=== PATIENT | female | born 1980 | race Caucasian/White ===

== ENCOUNTER 2017-06-26 22:26 | Emergency (ER) | payer BC ==
[~2017-06-26] VITALS: Ht 162.6 cm; Wt 85.8 kg
[~2017-06-26 22:26] MED LIST: ATIVAN0.5 MG PO; AURALGAN14.8 ML BOTH EARS; CARAFATE100 MG/ML PO; CEFDINIR300 MG PO; CELECOXIB200 MG PO; CIPRO HC OTIC S10 ML BOTH EARS; COUMADIN1 MG PO; ENDOCET 5-3251 EACH PO; FLEXERIL10 MG PO; HYDROCODON-ACE1 EAC7 PO; IBUPROFEN600 MG PO; INDOCIN25 MG PO; INDOCIN50 MG PO; IRON325 M1 PO; LIDOCAINE20 MG/1 M5 PO; NAPROSYN500 MG PO; NORCO 10/3251 TABLET PO; NORCO 5/3251 TABLET PO; SENNA-TIME S T1 EACH PO; ULTRAM50 MG PO; VICODIN 5-3001 EACH PO
[2017-06-26 23:23] LABS: APPEARANCE CLOUDY ((CLEAR)); BILIRUBIN NEGATIVE; BLOOD MODERATE; COLOR YELLOW ((YELLOW)); GLUCOSE (STRIP) NEGATIVE; KETONES NEGATIVE; LEUKOCYTES LARGE; NITRITE NEGATIVE; PROTEIN (STRIP) 100; SPECIFIC GRAVITY 1.025 (1.000-1.030); UROBILINOGEN 0.2 MG/DL (0.2-1.0)
[2017-06-26 23:36] LABS: EPITHELIAL CELLS 1+ /HPF; WHITE BLOOD CELLS TNTC /HPF (0-5)
[2017-06-26 23:37] LABS: BACTERIA 3+ /HPF; MUCUS RARE /LPF; UCUL ADDED? YES
[2017-06-27] MEDS ORDERED: MOTRIN600 MG PO (00:34)
[2017-06-27] MEDS ORDERED: CIPRO500 MG PO (00:34)
[2017-06-27] MEDS ORDERED: PYRIDIUM200 MG PO (00:34)
[2017-06-27 00:52] VITALS: BP 150/105
== END 2017-06-27 00:53 | disposition home or self-care (01) ==
LOC: EME 22:26
PROVIDERS: Emergency Medicine
DX: N39.0 Urinary tract infection, site not specified (principal); Z88.0 Allergy status to penicillin; Z88.1 Allergy status to other antibiotic agents; F17.200 Nicotine dependence, unspecified, uncomplicated
CPT/HCPCS: 81003; 84703; 87077; 87086; 87186; 99281; 99284

== ENCOUNTER → 2017-11-26 | Outpatient (CLI) | payer SELFPAY ==
[~2017-11-26] MED LIST changes: +CIPRO500 MG PO; +MOTRIN600 MG PO; +PYRIDIUM200 MG PO
== END | disposition home or self-care (01) ==
LOC: RAD 12:55
DX: N97.9 Female infertility, unspecified (principal); N94.6 Dysmenorrhea, unspecified
CPT/HCPCS: 76856

== ENCOUNTER 2018-01-09 00:42 | Emergency (ER) | payer BC ==
[~2018-01-09] VITALS: Ht 165.1 cm; Wt 81.7 kg
[2018-01-09] MEDS ORDERED: MOTRIN800 MG PO (02:18)
[2018-01-09] MEDS ORDERED: LIDOCAINE20 MG/1 M5 PO (02:18)
[2018-01-09] MEDS ORDERED: KEFLEX500 MG PO (02:18)
[2018-01-09] MEDS ORDERED: NORCO 10/3251 TABLET PO (02:18)
[2018-01-09] MEDS ORDERED: FLAGYL500 MG PO (02:18)
[2018-01-09 02:57] VITALS: BP 153/108
== END 2018-01-09 02:59 | disposition home or self-care (01) ==
LOC: EXP 00:42 → EME 00:42 → EXP 02:59
DX: K08.89 Other specified disorders of teeth and supporting structures (principal); K03.81 Cracked tooth; K02.9 Dental caries, unspecified; Z88.0 Allergy status to penicillin; F17.200 Nicotine dependence, unspecified, uncomplicated
CPT/HCPCS: 99281; 99283